=== PATIENT | male | born 1950 | race Caucasian/White ===

== ENCOUNTER → 2016-06-14 | Day surgery (SDC) | payer MEDICARE ==
[2016-05-25 09:53] VITALS: BMI 25.1
[~2016-06-14] MED LIST: BUPIVACAINE 0.5% 30 ML VIAL ONE; CEFAZOLIN 1 GM VIAL ONE; FENTANYL 100 MCG/2 ML VIAL IV PRN; HYDROmorphone 1 MG INJECTION IV PRN; HYDROmorphone 1 MG INJECTION ONE; ISOVUE-300 (61%) 50 ML ONE; LABETALOL 20 MG/4 ML SYRINGE IV PRN; MEPERIDINE 25 MG/ML TUBEX IV PRN; ONDANSETRON HCL 4 MG ODT TAB PO PRN; ONDANSETRON HCL 4 MG/2 ML VIAL IV PRN; hydrALAZINE 20 MG/ML VIAL IV PRN
--- NOTE | 2016-06-14 11:26 | HIM.ANES ---
Anesthesia Evaluation & Plan Diagnoses: OTHER SPECIFIED DISEASES OF GALLBLADDER (06/14/16) RIGHT UPPER QUADRANT PAIN (06/14/16) Consented Procedure: LAPAROSCOPIC CHOLECYSTECTOMY WITH INTRAOPERATIVE CHOLANGIOGRAM - Focused Review of Systems Cardiac History: Yes: Hx Cardiac Disorders, Hx Abnormal Cholesterol/ Hyperlipidemia (BORDERLINE NOT ON MEDICATION) HEENT: Yes: Cataracts (MILD), Hx Vision Problem (GLASSES), Other HEENT Problems No: Loose/Decaying Teeth Respiratory: Yes: Hx Asthma, Hx Snoring Gastrointestinal: Yes: Hx Gastroesophageal Reflux Disease, Hx Gastrointestinal Disorders, Hx Diverticulosis, Hx Colonoscopy (2014 POLYPECTOMY), Hx Endoscopy ( 05/25/2016) Neurological/Musculoskeletal: Yes: Hx Back Pain (CERVICAL SPINE) No: Hx Neurological Disorders Psychological: No Hx Mental/Emotional Disorders Blood/Autoimmune: No: Hx Blood Transfusions, Hx AIDS, Hx Hepatitis (type) Smoking Status: Never smoker Alcohol use: Social Surgical History: Yes: Back (LIPOMA REMOVED) Other Surgical History: VEIN STIPPING VARICOSELE LIPOMA REMOVED FROM BACK - Focused Physical Exam NPO since: 2300 Mallampati: Class I Thyromental Distance: Greater than 3 Neck: Full Range of Motion Dental: Normal - no significant findings Cardiovascular/Chest: Normal Respiratory: Chest non-tender, Lungs clear Any problems with anesthesia, including nausea and vomiting?: Yes (RINGING IN EARS AFTER ENDOSCOPY) Any relatives with a history of Malignant Hyperthermia?: No Does patient have a history of Malignant Hyperthermia?: No Beta Tomasa given (if appropriate): N/A Does the patient have a history of Motion Sickness-: No Other: Allergies Allergy/AdvReac Type Severity Reaction Status Date / Time No Known Allergies Allergy Verified 06/14/16 10:35 Home Medications Medication Instructions Recorded Last Taken Type Multivitamin [Multiple Vitamins] 1 each PO DAILY 03/19/13 06/13/16 08:00 History Esomeprazole Mag Trihydrate 40 mg PO DAILY 05/23/16 06/13/16 08:00 History [Nexium] PEG-Electrolytes (Miralax) 17 gm PO DAILY 05/25/16 06/12/16 History [Miralax] Height and Weight Patient's height 5 ft 10 in Patient's weight 77.564 kg BMI 25.1 Vital Signs Temperature 98.7 F 06/14/16 10:26 Pulse Rate 79 06/14/16 10:26 Respiratory Rate 18 06/14/16 10:26 Blood Pressure 118/69 06/14/16 10:26 Pulse Oxygen Saturation 100 06/14/16 10:26 METS - Level of Activity: Climbing stairs(1 flight),walking level ground, running short distance - Anesthetic Plan Anesthesia Type: General ASA Class: 2 -: I have examined this patient and reviewed the medical record. The patient has been assessed prior to anesthesia. Risks and benefits of anesthesia and anesthetic technique options have been discussed and all questions answered. The patient accepts the risk and desires me to proceed with the planned anesthetic.
--- NOTE | 2016-06-14 13:10 | HIMOPRPT ---
DATE OF PROCEDURE: 06/14/16 Preoperative diagnosis: Biliary dyskinesia with chronic cholecystitis Postoperative diagnosis: Biliary dyskinesia with chronic cholecystitis, final pathology pending Procedure: Intraoperative cholangiography under fluoroscopic guidance Surgeon: Leandro Carvalho MD Anesthesia: General Blood loss: 3 cc Packings and drains: None Complications: None Operative findings and technique: During the course of laparoscopic cholecystectomy by Dr. Carvalho, intraoperative cholangiography was performed under fluoroscopic guidance. Fluoroscopic images reveal a cholangiocatheter on the infundibulum of the gallbladder. Contrast dye is noted to fill the infundibulum. Contrast dye is noted to proceed down a spiraling cystic duct into a normal caliber common bile duct. Contrast dye flows antegrade down the common bile duct and into the duodenum. Retrograde filling of the hepatic radicles is noted as well. There is no evidence of common bile duct obstruction or lesion. Impression: Normal intraoperative cholangiography without any evidence of retained common bile duct stone, stricture, or other lesion.
--- NOTE | 2016-06-14 13:11 | HIMOPRPT ---
DATE OF PROCEDURE: 06/14/16 PREOPERATIVE DIAGNOSIS: Biliary dyskinesia, chronic cholecystitis. POSTOPERATIVE DIAGNOSIS: Biliary dyskinesia, chronic cholecystitis, final pathology pending. PROCEDURE: Laparoscopic cholecystectomy with intraoperative cholangiography under fluoroscopic guidance. SURGEON: Leandro Carvalho M.D. ANESTHESIA: General. COMPLICATIONS: None. SPECIMEN: Gallbladder and contents to pathology. PACKINGS AND DRAINS: None. ESTIMATED BLOOD LOSS: 3 cc. OPERATIVE FINDINGS AND TECHNIQUE: With consent, the patient was brought to the operative suite and placed in the supine position. Following general anesthesia , the abdomen was prepped and draped in the usual fashion. A curvilinear infraumbilical incision was made. Dissection was carried down to the fascia and the fascia was incised in midline. Peritoneal cavity was entered under direct vision. The balloon Farhan trocar was placed. The abdominal cavity was insufflated with carbon dioxide creating pneumoperitoneum and videoscopic exploration was undertaken. The gallbladder was identified and was minimally inflamed. The patient was appropriately positioned and additional trocars were then placed. A 5-mm trocar was placed in the epigastric area. Two 5 mm trocars were placed in right subcostal area. In each case, skin incision was made with the skin knife. Trocars entered into the peritoneal cavity under videoscopic guidance. Gallbladder was grasped and retracted. Dissection was carried out at the gallbladder cystic duct junction. Cystic duct and cystic artery were each completely encircled. Cholangiocatheter was placed across the infundibulum of the gallbladder. Contrast dye was noted to fill the infundibulum extend down the spiraling cystic duct leading down to a normal-caliber common bile duct. Prompt antegrade flow of contrast into the duodenum was noted and retrograde flow of contrast in the hepatic radicles was noted without any evidence of common bile duct obstruction or lesion. Cholangiocatheter was removed. Cystic duct and cystic artery were multiply clipped, ligated, and divided. The gallbladder was then taken off the liver bed entirely using electrocautery. The gallbladder was placed in a retrieval sac, taken out the abdominal cavity and passed off the specimen. Right upper quadrant was irrigated copiously. No bloody or bilious drainage was noted. Clips were identified and were in stable position. Trocars were then sequentially removed. There was no bleeding from the trocar insertion sites. The abdomen was desufflated. The fascia of the infraumbilical incision was closed with #0-Vicryl suture in interrupted figure-of eight fashion. All wounds were irrigated and dried. All wounds were injected with 0.5% Marcaine. Each skin incision was approximated using 4-0 Monocryl in a subcuticular fashion. Dermabond, 2 x 2 gauze, and Tegaderm dressings were applied to all the wounds. The patient tolerated the procedure well. Pathology is pending.
[2016-06-14 16:21] VITALS: TEMP 97.7
--- NOTE | 2016-06-14 16:23 | DIRPT ---
CLINICAL DATA: Biliary dyskinesia, abdominal pain and discomfort EXAM: INTRAOPERATIVE CHOLANGIOGRAM TECHNIQUE: Cholangiographic images from the C-arm fluoroscopic device were submitted for interpretation post-operatively. Please see the procedural report for the amount of contrast and the fluoroscopy time utilized. COMPARISON: 06/01/2016 FINDINGS: Intraoperative cholangiogram performed during the laparoscopic cholecystectomy. The cystic duct, biliary confluence, common hepatic duct, and common bile duct are patent. No dilatation or obstruction. No significant filling defect. Contrast drains into the duodenum. IMPRESSION: Patent biliary system. Electronically Signed By: Carlos Porter M.D. On: 06/14/2016 16:20
[2016-06-14 16:56] VITALS: PULSE 77
[2016-06-14 17:58] VITALS: BP 113/66
--- NOTE | 2016-06-14 17:58 | SC.ANESPOS ---
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
--- NOTE | 2016-06-15 17:01 | CAPUEKG ---
[place], [place] Test Date: 2016-06-14 Pat Name: BIJAL ALEGRE Department: Room: Gender: Male Training Representative: VANNESSA/S : Requested By: Order Number: Reading MD: Jamie Borges Measurements Intervals Fabens Rate: 76 P: 53 MT: 122 QRS: 13 QRSD: 76 T: 32 QT: 366 QTc: 411 Interpretive Statements Normal sinus rhythm Normal ECG Electronically Signed On 06-15-16 17:00:41 EST by Jamie Borges [id number] [id number]
== END ==
LOC: SDC 09:53
PROVIDERS: ATTEND Surgery Vascular Surgery
PROC: BF131ZZ Fluoroscopy of Gallbladder and Bile Ducts using Low Osmolar Contrast (ICD-10-PCS; 2016-06-14)
PROC: 0FT44ZZ Resection of Gallbladder, Percutaneous Endoscopic Approach (ICD-10-PCS; principal; 2016-06-14 10:30)
DX: K81.1 Chronic cholecystitis (principal); K21.9 Gastro-esophageal reflux disease without esophagitis; Z79.899 Other long term (current) drug therapy; Z87.891 Personal history of nicotine dependence
CPT/HCPCS: 47563; 74300; 93005; A9270; J0690; J1170; J3490